=== PATIENT | female | born 1990 | race Caucasian/White ===

== ENCOUNTER 2016-11-15 23:52 | Emergency (ER) | payer SELFPAY ==
[~2016-11-15] VITALS: Ht 165.1 cm; Wt 50.3 kg
[2016-11-16] MEDS ORDERED: LORazepam 1MG TABLET PO ONE (01:00)
[2016-11-16] MEDS ORDERED: KETOROLAC 30 MG/1 ML IM ONE (01:00)
[2016-11-16 01:05] LABS: BLOOD UREA NITROGEN 6 mg/dL (7-18)
[2016-11-16] MEDS ORDERED: LORazepam 1MG TABLET ONE (01:07)
[2016-11-16] MEDS ORDERED: KETOROLAC 30 MG/1 ML ONE (01:07)
[2016-11-16 01:08] LABS: IS PT STATUS REG ER OR PRE ER? YES
[2016-11-16] MEDS ORDERED: METO50TA82 PO (01:35)
[2016-11-16 02:36] VITALS: BP 107/64
== END 2016-11-16 03:53 | disposition home or self-care (01) ==
LOC: ED 23:59
DX: R07.9 Chest pain, unspecified (principal); K21.9 Gastro-esophageal reflux disease without esophagitis
CPT/HCPCS: 36415; 71010; 80048; 82040; 84484; 85025; 85379; 93005; 96372; 99285; J1885